=== PATIENT | female | born 1995 | race Caucasian/White ===

== ENCOUNTER 2017-04-17 15:24 | Emergency (ER) | payer BC ==
[~2017-04-17] VITALS: Ht 167.6 cm; Wt 64.7 kg
[2017-04-17] MEDS ORDERED: ONDANSETRON 4MG OD TAB PO ONE (15:30)
[2017-04-17 15:37] VITALS: O2SAT 100
[2017-04-17 15:49] VITALS: TEMP 36.4; Ht 167.6 cm; Wt 64.7 kg
[2017-04-17] MEDS ORDERED: ONDANSETRON HOME PACK 4MG OD TAB PO ONE (18:00)
--- NOTE | 2017-04-17 18:03 | EMERGENCY ROOM VISIT NOTE ---
History First contact with patient: 15:16 Chief Complaint: ALCOHOL OVERDOSE Stated Complaint: ETOH History of Present Illness The patient is a 22 year old female who presents to the Emergency Room via BLS ambulance for evaluation of alcohol intoxication. The patient was with her friends today at the football game, and became concerned because of the amount of alcohol that she drank today. They were unable to quantify amounts. When police evaluated the patient, he suggested that she come to the hospital for further reevaluation. While sitting in the police cruiser, the patient vomited. Otherwise abdomen screw reports that she was communicating with them always able to state her name, birthdate and day. On a quick assessment, they did not notice any body injuries, and the patient denied any discomfort. On my examination of the patient, she denies any acute injuries. She denies any illicit drug use. She will not quantify amounts of alcohol. The patient is a [employer] student. Her parents live in [place]. She denies any pain. She does report mild nausea. Review of Systems Initial review of systems was limited secondary to alcohol intoxication Past Medical/Surgical History Medical Problems: (1) No significant past medical history Surgical Problems: (1) No history of previous surgery Family History Unremarkable per patient Social History Smoking Status: Never Smoker Alcohol Use: occasionally Marital Status: single Housing Status: lives with family Occupation Status: [employer] student Current/Historical Medications No Active Prescriptions or Reported Meds Physical Exam Vital Signs Date Time Temp Pulse Resp B/P (MAP) Pulse Ox O2 Delivery O2 Flow Rate FiO2 04/17/17 17:06 69 18 101/60 100 Room Air 04/17/17 15:49 36.4 73 16 104/60 99 Room Air 04/17/17 15:38 69 04/17/17 15:37 100 Room Air Physical Exam CONSTITUTIONAL: Healthy and well nourished appearing female. Strong smell of alcohol is present. The patient does answer questions. GCS 15. HEENT: Normocephalic, atraumatic. Pupils equal, round and reactive. No epistaxis or hemotympanum. OROPHARYNX: No obvious dental trauma. NECK: Full active range of motion without discomfort. RESPIRATORY: Clear to auscultation bilaterally with no wheezing, crackles, rhonchi or stridor. CARDIOVASCULAR: Regular rate and rhythm with no murmurs, rubs or gallops. GASTROINTESTINAL: Bowel sounds present in all quadrants. Soft and nontender to palpation. MUSCULOSKELETAL: Full range of motion of all joints without discomfort. INTEGUMENTARY: No rash or other significant dermatologic conditions noted. Per nursing staff, with the patient was undressed and placed on monitor, no other obvious skin abrasions, ecchymosis or lacerations were noted. NEUROLOGIC: No focal neurologic deficits noted. Medical Decision & Procedures Laboratory Results Test 04/17/17 15:40 Ethyl Alcohol mg/dL 233.9 mg/dl (0-3) Medications Administered Medications (Trade) Dose Ordered Sig/Agustín Route Start Time Stop Time Status Last Admin Dose Admin Ondansetron HCl (Zofran Odt) 4 mg ONE ONCE PO 04/17/17 15:30 04/17/17 15:31 DC 04/17/17 15:37 4 MG ED Course Patient history and physical exam were performed. Nurse's notes were reviewed. Vital signs were reviewed and were normal. The patient does somewhat engaging conversation. She will not quantify amounts of alcohol consumption today. Her physical exam is otherwise benign. The patient was placed in a prone position and on [employer]. Blood alcohol was drawn, and was to 233.9. The parents did arrive within approximately 30 minutes after patient arrival. The father introduce himself as an anesthesiologist with [employer]. The father was advised of his daughters blood alcohol level. We did try to ambulate the patient, and she felt a little woozy. She laid back down and took a nap. An approximately 2.5 hours after patient arrival, she awoke and was feeling much better. Following ambulation at that point was successful , and the father felt comfortable taking the patient home. The patient was dispensed a Zofran ODT home pack until the family can get back home. The patient was instructed to complete the [employer] [facility] as provided on an additional handout. She was instructed to remain well-hydrated today. Return to the emergency department for any other concerns. The patient and parents voiced understanding of all discharge instructions. Medical Decision Head Trauma GCS Score: 15 Blood Pressure Screening Patient's blood pressure: Normal blood pressure Impression Primary Impression: Alcohol overdose Departure Information Prescriptions No Active Prescriptions or Reported Meds Referrals No Doctor, Assigned (PCP) Patient Instructions [facility] Problem Qualifiers Primary Impression: Alcohol overdose Encounter type: initial encounter Injury intent: accidental or unintentional Qualified Codes: T51.91XA - Toxic effect of unspecified alcohol , accidental (unintentional), initial encounter
[2017-04-17 18:27] VITALS: BP 106/58; PULSE 68; O2SAT 100
== END 2017-04-17 18:29 | disposition home or self-care (01) ==
LOC: EDBD 15:24 → C.EDA 15:28
DX: T51.91XA Toxic effect of unspecified alcohol, accidental (unintentional), initial encounter (principal)